=== PATIENT | female | born 1990 | race Caucasian/White ===

== ENCOUNTER 2019-05-29 10:21 | Emergency (ER) | payer OTHER ==
[~2019-05-29] VITALS: Ht 154.9 cm; Wt 75.3 kg
[~2019-05-29 10:21] MED LIST: CLARINEX5 MG/TAB; FLOVENT 110MCG7.9 GM IH; GILTUSS LIQUID237 M1 PO; PROVENTIL HFA6.7 GM IH
== END 2019-05-29 12:48 | disposition home or self-care (01) ==
LOC: ER 10:21
DX: R05 Cough (principal)

== ENCOUNTER 2020-11-27 10:30 | Emergency (ER) | payer OTHER ==
[~2020-11-27] VITALS: Ht 154.9 cm; Wt 81.6 kg
== END 2020-11-27 17:24 | disposition home or self-care (01) ==
LOC: ER 10:30
DX: O26.851 Spotting complicating pregnancy, first trimester (principal); O36.80X1 Pregnancy with inconclusive fetal viability, fetus 1; Z3A.01 Less than 8 weeks gestation of pregnancy

== ENCOUNTER 2020-11-28 22:29 | Emergency (ER) | payer OTHER ==
[~2020-11-28] VITALS: Ht 154.9 cm; Wt 81.6 kg
== END 2020-11-29 09:50 | disposition home or self-care (01) ==
LOC: ER 22:29
DX: O03.9 Complete or unspecified spontaneous abortion without complication (principal)

== ENCOUNTER 2021-03-30 11:07 | Emergency (ER) | payer OTHER ==
[~2021-03-30] VITALS: Ht 154.9 cm; Wt 80.7 kg
[2021-03-30] MEDS ORDERED: TUSICOF LIQUID120 ML PO (11:18)
[2021-03-30] MEDS ORDERED: SINGULAIR10 MG PO (11:18)
[2021-03-30] MEDS ORDERED: PROAIR RESPICL90 MCG IH (11:18)
[2021-03-30] MEDS ORDERED: ZITHROMAX500 MG PO (13:44)
== END 2021-03-30 13:52 | disposition home or self-care (01) ==
LOC: ER 11:07
DX: J06.9 Acute upper respiratory infection, unspecified (principal); Z03.818 Encounter for observation for suspected exposure to other biological agents ruled out

== ENCOUNTER 2021-04-17 08:48 | Emergency (ER) | payer OTHER ==
[~2021-04-17] VITALS: Ht 154.9 cm; Wt 80.3 kg
[~2021-04-17 08:48] MED LIST changes: +PROAIR RESPICL90 MCG IH; +SINGULAIR10 MG PO; +TUSICOF LIQUID120 ML PO; +ZITHROMAX500 MG PO
[2021-04-17] MEDS ORDERED: MULTI VITAMIN1 EACH PO (09:02)
[2021-04-17] MEDS ORDERED: PROMETH-CODEIN 65 ML PO (13:38)
[2021-04-17] MEDS ORDERED: IPRAT-ALBUT 0.5-3 ML IH (13:38)
[2021-04-17] MEDS ORDERED: LEVOFLOXACIN750 MG PO (13:38)
[2021-04-17] MEDS ORDERED: BUDESONIDE0.5 MG/2 M IH (13:38)
[2021-04-17] MEDS ORDERED: INTESTINEX680 M1 PO (13:40)
[2021-04-17] MEDS ORDERED: MUCINEX DM ER1 EAC1 PO (13:40)
== END 2021-04-17 14:09 | disposition home or self-care (01) ==
LOC: ER 08:48
DX: J06.9 Acute upper respiratory infection, unspecified (principal); Z03.818 Encounter for observation for suspected exposure to other biological agents ruled out; R05.9 Cough, unspecified; R06.02 Shortness of breath; R50.9 Fever, unspecified

== ENCOUNTER 2021-06-15 18:15 | Emergency (ER) | payer OTHER ==
[~2021-06-15] VITALS: Ht 152.4 cm; Wt 79.4 kg
[~2021-06-15 18:15] MED LIST changes: +BUDESONIDE0.5 MG/2 M IH; +INTESTINEX680 M1 PO; +IPRAT-ALBUT 0.5-3 ML IH; +LEVOFLOXACIN750 MG PO; +MUCINEX DM ER1 EAC1 PO; +MULTI VITAMIN1 EACH PO; +PROMETH-CODEIN 65 ML PO
== END 2021-06-15 20:33 | disposition home or self-care (01) ==
LOC: ER 18:15
DX: K80.20 Calculus of gallbladder without cholecystitis without obstruction (principal); J45.998 Other asthma

== ENCOUNTER 2021-06-24 10:55 | Emergency (ER) | payer OTHER ==
[~2021-06-24] VITALS: Ht 154.9 cm; Wt 79.4 kg
[2021-06-24] MEDS ORDERED: MULTI VITAMIN1 EACH PO (11:16)
== END 2021-06-24 14:36 | disposition home or self-care (01) ==
LOC: ER 10:55
DX: B34.9 Viral infection, unspecified (principal); Z20.822 Contact with and (suspected) exposure to COVID-19

== ENCOUNTER 2022-02-27 09:36 | Emergency (ER) | payer OTHER ==
[~2022-02-27] VITALS: Ht 154.9 cm; Wt 78.5 kg
== END 2022-02-27 14:50 | disposition home or self-care (01) ==
LOC: ER 09:36
DX: R10.2 Pelvic and perineal pain (principal); D25.9 Leiomyoma of uterus, unspecified

== ENCOUNTER 2022-04-18 09:02 | Emergency (ER) | payer OTHER ==
[~2022-04-18] VITALS: Ht 154.9 cm; Wt 75.7 kg
== END 2022-04-18 10:39 | disposition home or self-care (01) ==
LOC: ER 09:02
DX: J03.90 Acute tonsillitis, unspecified (principal); Z88.0 Allergy status to penicillin; Z88.8 Allergy status to other drugs, medicaments and biological substances

== ENCOUNTER 2022-10-22 09:21 | Emergency (ER) | payer OTHER ==
[~2022-10-22] VITALS: Ht 154.9 cm; Wt 68.0 kg
[~2022-10-22 09:21] MED LIST changes: +MUCINEX600 MG; +PRILOSEC OTC20 MG
== END 2022-10-22 10:53 | disposition home or self-care (01) ==
LOC: ER 09:21
DX: J06.9 Acute upper respiratory infection, unspecified (principal); J02.9 Acute pharyngitis, unspecified; Z88.0 Allergy status to penicillin; Z88.8 Allergy status to other drugs, medicaments and biological substances

== ENCOUNTER 2022-12-11 18:19 | Emergency (ER) | payer OTHER ==
[~2022-12-11] VITALS: Ht 154.9 cm; Wt 68.0 kg
== END 2022-12-11 22:38 | disposition home or self-care (01) ==
LOC: ER 18:19
DX: R20.2 Paresthesia of skin (principal); Z88.0 Allergy status to penicillin; Z88.8 Allergy status to other drugs, medicaments and biological substances

== ENCOUNTER 2023-10-04 22:14 | Emergency (ER) | payer OTHER ==
[~2023-10-04] VITALS: Ht 154.9 cm; Wt 66.2 kg
== END 2023-10-05 00:16 | disposition home or self-care (01) ==
LOC: ER 22:14
DX: S96.811A Strain of other specified muscles and tendons at ankle and foot level, right foot, initial encounter (principal); X58.XXXA Exposure to other specified factors, initial encounter; Y93.89 Activity, other specified; Y92.89 Other specified places as the place of occurrence of the external cause; Y99.8 Other external cause status; Z88.0 Allergy status to penicillin; Z88.8 Allergy status to other drugs, medicaments and biological substances

== ENCOUNTER 2024-04-17 19:17 | Emergency (ER) | payer OTHER ==
[~2024-04-17] VITALS: Ht 154.9 cm; Wt 69.4 kg
[2024-04-17 20:42] LABS: HEMATOCRIT 33.1 % (36.0-45.00); HEMOGLOBIN 11.3 g/dL (12.0-15.00); MEAN CORPUSCULAR HEMOGLOBIN 30.1 pg (27.00-32.0); MEAN CORPUSCULAR HGB CONC 34.2 g/dl (32.0-36.0); PLATELET COUNT 277 K/uL (150-450); RED BLOOD COUNT 3.76 M/uL (4.00-6.00); RED CELL DISTRIBUTION WIDTH 13.9 % (11.5-14.5)
[2024-04-17 21:07] LABS: INR 1.06; PARTIAL THROMBOPLASTIN TIME 30.9 SECONDS (22.0-34.0); PROTHROMBIN TIME 11.5 SECONDS (9.0-11.5)
[2024-04-17 21:26] LABS: ALBUMIN 3.6 gm/dL (3.4-5.0); BILIRUBIN TOTAL 0.17 mg/dL (0.3-1.2); CALCIUM 8.8 mg/dL (8.5-10.1); CREATININE SERUM 0.7 mg/dL (0.55-1.02); GFR 96.97; GLOBULINA 3.8 G/DL (2.4-3.5); POTASSIUM 3.79 mEq/L (3.5-5.1); TOTAL PROTEIN 7.4 gm/dL (6.4-8.2)
[2024-04-17 21:28] LABS: PH,URINE 6.5 (5.0-8.0); URINE APPEARANCE Clear; URINE BILIRRUBIN Negative (NEGATIVE); URINE BLOOD Large; URINE COLOR Yellow; URINE GLUCOSE Negative (NEGATIVE); URINE KETONE Negative (NEGATIVE); URINE LEUKOCYTE Negative; URINE NITRATE Negative; URINE PROTEIN Negative (NEGATIVE); URINE UROBILINOGEN 0.2 E.U./dl
[2024-04-17 21:34] LABS: URINE BACTERIA 27.7 uL (0.0-1933); URINE EPITHELIAL CELLS 1.8 uL (0.0-38.8); URINE RBC 548.4 uL (0.0-20.8); URINE WBC 6.9 uL (0.0-23.2)
== END 2024-04-17 22:26 | disposition home or self-care (01) ==
LOC: ER 19:19
PROVIDERS: General Practice
DX: O20.8 Other hemorrhage in early pregnancy (principal); Z3A.01 Less than 8 weeks gestation of pregnancy; Z20.822 Contact with and (suspected) exposure to COVID-19; Z88.0 Allergy status to penicillin; Z88.8 Allergy status to other drugs, medicaments and biological substances